=== PATIENT | female | born 1995 | race Caucasian/White ===

== ENCOUNTER 2021-11-07 01:19 | Emergency (ER) | payer MEDICAID ==
[~2021-11-07] VITALS: Ht 157.5 cm; Wt 60.0 kg
[2021-11-07] MEDS ORDERED: IBUPROFEN 600MG TABLET PO STA (02:07)
[2021-11-07] MEDS ORDERED: PIPERACILLIN/TAZ 3.375G PREMIX 50 ML IV ONE (02:15)
[2021-11-07] MEDS ORDERED: VANCOMYCIN 1G PREMIX 200 ML IV ONE (02:15)
[2021-11-07] MEDS ORDERED: SODIUM CHLORIDE 0.9% 1000ML BAG (SEPSIS BOLUS) IV ONE (02:15)
[2021-11-07 02:57] LABS: BASOPHILS % 0.7 % (0.0-2.0); EOSINOPHILS % 0.3 % (0.0-5.0); HEMATOCRIT. 25.9 % (36.0-48.0); LYMPHOCYTES % 15.9 % (20.0-50.0); MEAN CORPUSCULAR HEMOGLOBIN 20.4 pg (28.0-32.0); MEAN CORPUSCULAR VOLUME 66.1 fL (81.0-99.0); MEAN PLATELET VOLUME 6.5 fl (7.4-10.4); MONOCYTES % 5.8 % (2.0-8.0); NEUTROPHILS % 77.3 % (40.0-76.0); PLATELET 549 x1000/uL (130-400); RED BLOOD CELL COUNT 3.92 mill/uL (4.2-5.4)
[2021-11-07 03:09] LABS: CHLORIDE 103 mEq/L (98-107)
[2021-11-07 03:20] LABS: ETHANOL BLOOD < 10 mg/dL
[2021-11-07 04:13] LABS: CLARITY URINE TURBID (CLEAR); COLOR URINE ORANGE (YELLOW); KETONES URINE NEGATIVE (NEGATIVE); LEUKOCYTE ESTERASE URINE 3+ (NEGATIVE); NITRITE URINE NEGATIVE (NEGATIVE); OCCULT BLOOD URINE 3+ (NEGATIVE); PH URINE 6.5 (4.5-8.0); PROTEIN URINE 2+ (NEGATIVE); SPECIFIC GRAVITY URINE 1.016 (1.005-1.030)
[2021-11-07 04:54] LABS: *BARBITURATES SCREEN URINE NEGATIVE (NEGATIVE); *BENZODIAZEPINES SCREEN URINE NEGATIVE (NEGATIVE); *COCAINE SCREEN URINE NEGATIVE (NEGATIVE); CANNABINOID URINE SCREEN NEGATIVE (NEGATIVE); METHADONE URINE SCREEN NEGATIVE (NEGATIVE); OPIATES URINE SCREEN NEGATIVE (NEGATIVE)
[2021-11-07 05:03] LABS: PLATELET ESTIMATE SLIGHTLY INCREASED
[2021-11-07 05:39] LABS: *AMPHETAMINES SCREEN URINE PRESUMTIVE POSITIVE (NEGATIVE); PHENCYCLIDINE URINE SCREEN PRESUMTIVE POSITIVE (NEGATIVE)
[2021-11-07 07:03] VITALS: BP 103/86
== END 2021-11-07 09:03 | disposition left against medical advice (07) ==
LOC: ER 01:19 → CANBEDREQ 09:04
DX: J18.9 Pneumonia, unspecified organism (principal); R50.9 Fever, unspecified; F15.10 Other stimulant abuse, uncomplicated; F16.10 Hallucinogen abuse, uncomplicated; F17.210 Nicotine dependence, cigarettes, uncomplicated; Z20.822 Contact with and (suspected) exposure to COVID-19; Z98.890 Other specified postprocedural states
CPT/HCPCS: 36415; 71045; 80053; 80305; 80320; 81003; 81025; 83605; 84145; 84484; 85025; 87040; 87086; 87426; 87804; 93005; 96365; 96368; 99291; C9803; J2543; J3370; J7030; G0480

== ENCOUNTER 2021-12-19 10:07 | Inpatient (IN) | payer MEDICAID ==
[~2021-12-19] VITALS: Ht 162.6 cm; Wt 58.0 kg
[2021-12-19] MEDS ORDERED: ACETAMINOPHEN 325MG TABLET PO STA (10:13)
[2021-12-19] MEDS ORDERED: SODIUM CHLORIDE 0.9% 1000ML BAG (SEPSIS BOLUS) IV ONE (10:15)
[2021-12-19 10:37] LABS: BASOPHILS % 0.8 % (0.0-2.0); EOSINOPHILS % 1.4 % (0.0-5.0); HEMOGLOBIN. 15.5 g/dL (12.0-16.0); LYMPHOCYTES % 32.5 % (20.0-50.0); MEAN CORPUSCULAR VOLUME 100.5 fL (81.0-99.0); MONOCYTES % 6.9 % (2.0-8.0); NEUTROPHILS % 58.4 % (40.0-76.0); RED BLOOD CELL COUNT 4.58 mill/uL (4.2-5.4); RED CELL DISTRIBUTION WIDTH 17.9 % (11.6-14.6)
[2021-12-19 10:44] LABS: CHLORIDE 100 mEq/L (98-107)
[2021-12-19 10:47] LABS: INR 1.1; PROTHROMBIN TIME 11.7 sec (9.6-11.0)
[2021-12-19 11:12] LABS: PLATELET 109 x1000/uL (130-400)
[2021-12-19] MEDS ORDERED: PIPERACILLIN/TAZ 3.375G PREMIX 50 ML IV ONE (11:15)
[2021-12-19] MEDS ORDERED: VANCOMYCIN 1G PREMIX 200 ML IV ONE (11:15)
[2021-12-19 11:16] LABS: CLARITY URINE TURBID (CLEAR); COLOR URINE ORANGE (YELLOW); KETONES URINE NEGATIVE (NEGATIVE); LEUKOCYTE ESTERASE URINE 3+ (NEGATIVE); NITRITE URINE NEGATIVE (NEGATIVE); OCCULT BLOOD URINE 3+ (NEGATIVE); PH URINE 6.5 (4.5-8.0); PROTEIN URINE 2+ (NEGATIVE); SPECIFIC GRAVITY URINE 1.013 (1.005-1.030)
[2021-12-19 11:32] LABS: *BARBITURATES SCREEN URINE NEGATIVE (NEGATIVE); *BENZODIAZEPINES SCREEN URINE NEGATIVE (NEGATIVE); *COCAINE SCREEN URINE NEGATIVE (NEGATIVE); CANNABINOID URINE SCREEN NEGATIVE (NEGATIVE); METHADONE URINE SCREEN NEGATIVE (NEGATIVE); OPIATES URINE SCREEN NEGATIVE (NEGATIVE)
[2021-12-19] MEDS ORDERED: VANCOMYCIN 1GM PMX (XELLIA) 200 ML IV NR (11:45)
[2021-12-19 12:00] LABS: *AMPHETAMINES SCREEN URINE PRESUMTIVE POSITIVE (NEGATIVE); PHENCYCLIDINE URINE SCREEN PRESUMTIVE POSITIVE (NEGATIVE)
[2021-12-19] MEDS ORDERED: NOREPINEPHRINE 8MG/250ML PMX 250 ML IV STA (12:49)
[2021-12-19] MEDS ORDERED: NOREPINEPHRINE 8 MG in DEXTROSE 5% WATER 250 ML IV PRN (13:00)
[2021-12-19 13:41] VITALS: BP 90/53
== END 2021-12-19 13:39 | disposition left against medical advice (07) | DRG 720 ==
LOC: ER 10:07 → 6WST 12:02 → EDBEDREQSVC 12:15 → EDBEDREQ 12:15 → ENRESERV 13:15 → ER 13:38 → CMPBEDREQ 16:54
PROVIDERS: ADMIT Internal Medicine; ATTEND Internal Medicine
DX: A41.9 Sepsis, unspecified organism (principal); F15.90 Other stimulant use, unspecified, uncomplicated; Z53.29 Procedure and treatment not carried out because of patient's decision for other reasons; Z98.891 History of uterine scar from previous surgery
CPT/HCPCS: 36415; 71045; 80053; 80305; 80320; 81003; 83605; 84145; 84484; 85025; 93005; 99285; J2543; J3370; J7030; G0480

== ENCOUNTER 2022-01-07 12:36 | Emergency (ER) | payer MEDICAID ==
[~2022-01-07] VITALS: Ht 157.5 cm; Wt 41.0 kg
[2022-01-07] MEDS ORDERED: ONDANSETRON HCL 4MG/2ML INJ IV STA (13:11)
[2022-01-07] MEDS ORDERED: ACETAMINOPHEN 325MG TABLET PO STA (13:11)
[2022-01-07] MEDS ORDERED: SODIUM CHLORIDE 0.9% 1,000 ML IV ONE (13:15)
[2022-01-07 14:00] VITALS: BP 109/78
[2022-01-07 14:21] LABS: CLARITY URINE CLOUDY (CLEAR); COLOR URINE YELLOW (YELLOW); KETONES URINE NEGATIVE (NEGATIVE); LEUKOCYTE ESTERASE URINE 3+ (NEGATIVE); NITRITE URINE NEGATIVE (NEGATIVE); OCCULT BLOOD URINE 1+ (NEGATIVE); PH URINE 7.5 (4.5-8.0); PROTEIN URINE NEGATIVE (NEGATIVE); SPECIFIC GRAVITY URINE 1.002 (1.005-1.030); UROBILINOGEN URINE 0.2 E.U./dL (0.2-1.0)
[2022-01-07 15:00] LABS: *AMPHETAMINES SCREEN URINE NEGATIVE (NEGATIVE); *BARBITURATES SCREEN URINE NEGATIVE (NEGATIVE); *BENZODIAZEPINES SCREEN URINE NEGATIVE (NEGATIVE); *COCAINE SCREEN URINE NEGATIVE (NEGATIVE); CANNABINOID URINE SCREEN NEGATIVE (NEGATIVE); METHADONE URINE SCREEN NEGATIVE (NEGATIVE); OPIATES URINE SCREEN NEGATIVE (NEGATIVE); PHENCYCLIDINE URINE SCREEN NEGATIVE (NEGATIVE)
== END 2022-01-07 14:42 | disposition left against medical advice (07) ==
LOC: ER 12:36 → CANBEDREQ 19:00
DX: R64 Cachexia (principal); R11.10 Vomiting, unspecified; Z87.01 Personal history of pneumonia (recurrent); Z87.898 Personal history of other specified conditions; Z20.822 Contact with and (suspected) exposure to COVID-19; Z98.890 Other specified postprocedural states
CPT/HCPCS: 80305; 81003; 87070; 87086; 87426; 87430; 93005; 99284; C9803; J7030

== ENCOUNTER 2022-01-11 11:37 | Emergency (ER) | payer MEDICAID ==
[~2022-01-11] VITALS: Ht 162.6 cm; Wt 41.0 kg
[2022-01-11 11:48] VITALS: BP 108/68
[2022-01-11] MEDS ORDERED: KETOROLAC 30MG/ML VIAL IV ONE (12:15)
[2022-01-11] MEDS ORDERED: SODIUM CHLORIDE 0.9% 1000ML BAG (SEPSIS BOLUS) IV ONE (12:15)
== END 2022-01-11 13:25 | disposition left against medical advice (07) ==
LOC: ER 11:37 → EDBEDREQ 12:07 → EDBEDREQTM 12:13 → EDBEDREQSVC 12:13 → ER 13:25 → CANBEDREQ 17:54
DX: R62.7 Adult failure to thrive (principal); R00.0 Tachycardia, unspecified; Z91.19 Patient's noncompliance with other medical treatment and regimen; Z98.890 Other specified postprocedural states
CPT/HCPCS: 71045; 93005; 99283; J7030